=== PATIENT | female | born 1995 | race Caucasian/White ===

== ENCOUNTER 2024-10-06 23:44 | Emergency (ER) | payer OTHER ==
[~2024-10-06] VITALS: Ht 167.6 cm; Wt 94.8 kg
[2024-10-07] MEDS ORDERED: LACTATED RINGER'S 1,000 ML IV ONE (00:15)
[2024-10-07] MEDS ORDERED: ALBUTEROL/IPRATROPIUM 3 ML NEB INH ONE (00:15)
--- OUTSIDE RECORDS SUMMARY | 2024-10-07 00:15 | XMS ---
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 Terry [facility] (12 MO.) [facility] TOTAL 6 NOTE: Visits indicate total known visits. ED/UCC VISIT TRACKING (12 MO.) 10/06/2024 23:[address] [facility] [place] TYPE: Emergency COMPLAINT: - TROUBLE BREATHING/6 WEEKS 10/01/2024 17:51 [facility] [place] [facility] DIAGNOSES: - Acute cystitis without hematuria - Influenza due to other identified influenza virus with other respiratory manifestations - Other specified related conditions, unspecified trimester - Pelvic and perineal pain - Vomiting of , unspecified - Abdominal Pain - Cough - Nausea/Vomiting/Abdominal Pain - Vomiting 06/10/2024 17:53 [facility] [place] TYPE: Emergency DIAGNOSES: - Unspecified sprain of right hip, initial encounter - FALL - Hip Pain - Leg Pain 04/19/2024 07:24 [facility] [place] TYPE: Emergency DIAGNOSES: - Calculus of bile duct without cholangitis or cholecystitis without obstruction - Abdominal Pain - Abdominal pain, vomiting - Back Pain 02/27/2024 12:37 [facility] [place] TYPE: Emergency DIAGNOSES: - Bacteriuria - Unspecified abdominal pain - Abdominal Pain - rlq pain, vomiting 12/11/2023 05:29 [facility] [place] [facility] DIAGNOSES: - Acute suppurative otitis media without spontaneous rupture of ear drum, right ear - EARACHE INPATIENT VISIT TRACKING (12 MO.) No inpatient visits to display in this time frame [email or web address]
[2024-10-07 00:17] LABS: BASOPHILS 0.5 % (0-2); EOSINOPHILS 1.3 % (0-6); HEMATOCRIT 38.4 % (35.0-50.0); HEMOGLOBIN 13.3 g/dL (12.0-18.0); LYMPHOCYTES 42.7 % (24-44); MCH 31.2 (27-36); MCHC 34.6 g/dl (30-36); MCV 90.3 fl (81-99); MONOCYTES 10.3 % (0-12); NEUTROPHILS 45.2 % (39-80); PLATELET COUNT 212 K/uL (140-440); RBC 4.25 M/ul (4.3-5.7); RDW 12.6 (10.5-15.0)
[2024-10-07] MEDS ORDERED: DEXAMETHASONE SOD PHOS 10 MG/ML VIAL ONE (00:23)
[2024-10-07] MEDS ORDERED: DEXAMETHASONE SOD PHOS 10 MG/ML VIAL IV ONE (00:30)
[2024-10-07 00:34] LABS: ALBUMIN 3.9 g/dL (3.4-5.0); ALBUMIN/GLOBULIN RATIO 1.15 (1.1-2.4); ANION GAP 13.3 (7-21); BILIRUBIN, TOTAL 0.4 ng/dL (0.2-1.0); BUN/CREATININE RATIO 11.26 (6.0-28.6); CALCIUM 9.4 mg/dL (8.5-10.1); CREATININE, SERUM 0.71 mg/dL (0.55-1.02); MAGNESIUM 1.8 mg/dL (1.8-2.4); POTASSIUM 3.3 mmol/L (3.5-5.1); PROTEIN, TOTAL 7.3 g/dL (6.4-8.2)
[2024-10-07 00:37] LABS: LACTIC ACID, BLOOD 1.2 mmol/L (0.4-2.0)
[2024-10-07] MEDS ORDERED: ALBUTEROL SULFATE 8 GM HOME.PACK INH ONE (00:45)
[2024-10-07] MEDS ORDERED: INHALER, ASSIST DEVICES 1 EACH SPACER MISC ONE (00:45)
[2024-10-07] MEDS ORDERED: METHYLPREDNISOLO4 M1 PO (00:46)
[2024-10-07] MEDS ORDERED: FAMOTIDINE 20 MG/ 2 ML VIAL IV ONE (01:00)
[2024-10-07] MEDS ORDERED: ondansetron HCL 4 MG/2 ML VIAL IV ONE (01:00)
[2024-10-07] MEDS ORDERED: LIDOCAINE & ANTACID 35 ML BTL PO ONE (01:15)
[2024-10-07] MEDS ORDERED: OMEPRAZOLE20 MG PO (01:31)
[2024-10-07] MEDS ORDERED: CARAFATE1 GM/10 ML PO (01:31)
[2024-10-07 01:45] VITALS: BP 130/69
--- NOTE | 2024-10-07 21:42 | EKG ---
[facility] [address] [facility] [place] [facility] [place] [address] Signed Sinus tachycardia Otherwise normal ECG No previous ECGs available Confirmed by Mili Kirkpatrick MD () on 10/07/2024 9:42:33 PM Electronically Signed By: MILI KIRKPATRICK MD 10/07/242141 PATIENT NAME: QUENTIN CAMARILLO Electrocardiogram DATE OF : [birth year] PHYSICIAN: MILI KIRKPATRICK MD REPORT #: [id number] REPORT IS CONFIDENTIAL AND NOT TO BE RELEASED WITHOUT AUTHORIZATION
== END 2024-10-07 01:45 | disposition home or self-care (01) ==
LOC: ED 23:44
PROVIDERS: Internal Medicine
DX: J20.8 Acute bronchitis due to other specified organisms (principal); K21.9 Gastro-esophageal reflux disease without esophagitis; J10.1 Influenza due to other identified influenza virus with other respiratory manifestations
CPT/HCPCS: 36415; 71045; 80053; 83605; 83735; 84484; 85025; 93005; 93010; 94640; 94664; 96374; 96375; 99285-25; J1100; J2405; J7121

== ENCOUNTER 2025-05-24 06:00 | Inpatient (IN) | payer OTHER ==
[~2025-05-24] VITALS: Ht 172.7 cm; Wt 107.5 kg
[~2025-05-24 06:00] MED LIST: CALCIUM CARBONATE 500 MG CHEW PO PRN; CARAFATE1 GM/10 ML PO; LACTATED RINGER'S 1,000 ML IV PRN; LACTATED RINGER'S 1,000 ML IV SCH; LIDOCAINE HCL 1% 30 ML SDV INJ PRN; MAGNESIUM HYDROXIDE/AL HYDROX 30 ML CUP PO PRN; METHYLPREDNISOLO4 M1 PO; OMEPRAZOLE20 MG PO; OXYTOCIN/0.9 % SODIUM CHLORIDE 30 UNITS/500 ML BAG IV SCH; TERBUTALINE SULFATE 1 MG/ML AMP SUB-Q PRN
[2025-05-24] MEDS ORDERED: OXYTOCIN/0.9 % SODIUM CHLORIDE 500 ML IV SCH (06:15)
[2025-05-24 06:59] VITALS: BP 115/60
[2025-05-24 07:07] LABS: MCH 31.0 PG (25.6-32.2); MCHC 32.9 g/dL (32.2-35.5); MCV 94.1 fL (79.4-94.8); RBC 3.55 M/uL (3.93-5.22)
[2025-05-24 07:14] LABS: AMPHETAMINES, URINE NEGATIVE (NEGATIVE); BARBITURATES, URINE NEGATIVE (NEGATIVE); BENZODIAZEPINE, URINE NEGATIVE (NEGATIVE); CANNABINOID, URINE NEGATIVE (NEGATIVE); COCAINE, URINE NEGATIVE (NEGATIVE); ECSTASY, URINE NEGATIVE (NEGATIVE); FENTANYL, URINE NEGATIVE (NEGATIVE); METHADONE, URINE NEGATIVE (NEGATIVE); OPIATES, URINE NEGATIVE (NEGATIVE); OXYCODONE, URINE NEGATIVE (NEGATIVE); PHENCYCLIDINE, URINE NEGATIVE (NEGATIVE)
[2025-05-24 07:29] LABS: ABO A; ANTIBODY SCREEN NEGATIVE; RH POSITIVE
[2025-05-24 07:58] LABS: PROTEIN, RANDOM URINE 26.0 mg/dL (NOT ESTABLISHED)
[2025-05-24 08:04] LABS: ALT (SGPT) 6.0 U/L (14-59); AST (SGOT) 17.0 U/L (15-37); GLOMERULAR FILTRATION RATE,EST 126.0 mL/min (>60); PROTEIN, TOTAL 6.8 g/dL (6.4-8.2); UREA NITROGEN 9.0 mg/dL (7-18)
[2025-05-24] MEDS ORDERED: FAMOTIDINE 20 MG/ 2 ML VIAL IV PRN (17:15)
--- NOTE | 2025-05-24 17:15 | PR ---
[facility] [address] [place], [place] [address] Signed Progress Notes IP Datetime Report Generated by CPEric: 05/24/2025 17:15 PROGRESS NOTES: [id number] Impression: Reassuring Heart Rate Procedures: Sterile Vag Exam Plan: Continue Present Management Informed Consent Obtain: Induction of Labor VITAL SIGNS: [id number] Vital Signs: Reviewed; Within Normal Limits EXAM: [id number] Dilatation: 0.5 Effacement: 60 Effacement: 50 Effacement: 50 Effacement: thick Effacement: thick Effacement: thick Station: -3 Station: -4 Station: -4 Station: -3 Station: -3 Station: -3 Contractions: Irregular, mild MEMBRANES: [id number] ROM Note: No leaking noted at this time. Panties moist without pad on. Nitrazine negative on panties. Comments: Pt seen and examined. Doing well. Contractions regular and somewhat painful. Cx remains unfavorable; fingertip thick -3 posterior soft. Reviewed plan of care. Will reevaluate cx at _ 9pm. Consider Cook cath if unchanged and isela vs cytotec if not isela. If favorable, would consider AROM vs expectant management if in active labor. All questions answered. FETUS A: [id number] FHR Baseline: 130 Variability: Moderate 6-25bpm Accelerations: 15X15 Decelerations: None FHR Category: Category I Presentation: Vertex *Electronically Signed* 05/24/25 3497 LUISA VITALE) DO PATIENT NAME: QUENTIN CAMARILLO PROGRESS NOTE DATE OF : [birth year] PHYSICIAN: LUISA VITALE (JD) DO RPT #: [id number] REPORT IS CONFIDENTIAL AND NOT TO BE RELEASED WITHOUT AUTHORIZATION [address] [place] [address] Signed Comments on Fetus A: Reassuring FETUS B: [id number] Signing Physician: Luisa Vitale DO Copies: ~ *Electronically Signed* 05/24/25 1715 LUISA VITALE) DO PATIENT NAME: QUENTIN CAMARILLO PROGRESS NOTE DATE OF : [birth year] PHYSICIAN: LUISA VITALE (JD) DO RPT #: [id number] REPORT IS CONFIDENTIAL AND NOT TO BE RELEASED WITHOUT AUTHORIZATION
[2025-05-24] MEDS ORDERED: ACETAMINOPHEN 500 MG TAB PO PRN (21:30)
[2025-05-25 02:43] LABS: AMNISURE ROM TEST POSITIVE
[2025-05-25] MEDS ORDERED: LIDOCAINE HCL 2% 5 ML SDV ONE (03:19)
[2025-05-25] MEDS ORDERED: ROPIVACAINE 0.2% 200 ML BAG ONE (03:19)
[2025-05-25] MEDS ORDERED: ePHEDrine sulfate 5 MG/ML SYRINGE IV PRN (04:15)
[2025-05-25] MEDS ORDERED: LACTATED RINGER'S 2,000 ML IV ONE (04:15)
[2025-05-25] MEDS ORDERED: LACTATED RINGER'S 500 ML IV PRN (04:15)
[2025-05-25] MEDS ORDERED: ROPIVACAINE 0.2% 200 ML BAG EPIDURAL SCH (04:15)
--- NOTE | 2025-05-25 08:10 | PR ---
[facility] [address] [facility] [place], [place] [address] Signed Progress Notes IP Datetime Report Generated by CPN: 05/25/2025 08:10 Impression: Normal Progression of Labor Procedures: Sterile Vag Exam Plan: Continue Present Management; Anesthesia Consult Informed Consent Obtain: Vaginal Delivery Dilatation: 4.0 Effacement: 60 Effacement: 40 Effacement: 40 Effacement: 40 Effacement: 40 Station: -3 Station: -3 Station: -3 Station: -3 Station: -3 Contractions: q 3 min Comments: Pt seen and examined. SROM _ 2am w/ increased contractions and received epidural. Slept well but now more uncomfortable and requesting bolus. Reviewed cervical change, adequate pelvis, and anticipated . Consider IUPC w/ possible augmentation vs expectant labor management once more comfortable. Variability: Moderate 6-25bpm Decelerations: None FHR Category: Category I Signing Physician: Luisa Vitale DO Copies: ~ *Electronically Signed* 05/25/25 0800 LUISA VITALE (TORREY) DO PATIENT NAME: QUENTIN CAMARILLO PROGRESS NOTE DATE OF : [birth year] PHYSICIAN: LUISA VITALE) DO RPT #: [id number] REPORT IS CONFIDENTIAL AND NOT TO BE RELEASED WITHOUT AUTHORIZATION
[2025-05-25] MEDS ORDERED: Ropivacaine HCl 0.5% 30 ML VIAL ONE (08:23)
--- NOTE | 2025-05-25 11:14 | PR ---
[facility] [address] [facility] [place] [facility] [place], [place] [address] Signed Progress Notes IP Datetime Report Generated by CPN: 05/25/2025 11:14 Impression: Normal Progression of Labor; Reassuring Heart Rate Procedures: Intrauterine Pressure Catheter; Sterile Vag Exam Plan: Augmentation Informed Consent Obtain: Vaginal Delivery; Risks, Benefits and Alternatives Discussed Dilatation: 5.0 Effacement: 60 Station: -3 Contractions: q 4-5 min Comments: Pt seen and examined. Doing well. Comfortable w/ epidural. Now 5cm but station remains quite high. IUPC placed w/out difficulty. Considered FSE but vertex not well enough applied to safely place and attempt was ceased. Will start pitocin augmentation. Reviewed prior deliveries / estimated weight and adequate pelvis. All questions answered. Variability: Moderate 6-25bpm Decelerations: None FHR Category: Category I Signing Physician: Luisa Vitale DO Copies: ~ *Electronically Signed* 05/25/25 1114 LUISA VITALE (TORREY) DO PATIENT NAME: QUENTIN CAMARILLO PROGRESS NOTE DATE OF : [birth year] PHYSICIAN: LUISA VITALE (TORREY) DO RPT #: [id number] REPORT IS CONFIDENTIAL AND NOT TO BE RELEASED WITHOUT AUTHORIZATION
[2025-05-25] MEDS ORDERED: OXYTOCIN/0.9 % SODIUM CHLORIDE 500 ML IV SCH ×2 (11:15→20:30)
--- NOTE | 2025-05-25 15:38 | PR ---
[facility] [address] [facility] [place], [place] [address] Signed Progress Notes IP Datetime Report Generated by CPN: 05/25/2025 15:38 Impression: Normal Progression of Labor; Reassuring Heart Rate Procedures: Sterile Vag Exam Plan: Continue Present Management Informed Consent Obtain: Vaginal Delivery Dilatation: 6.0 Contractions: q 3-4 minutes Comments: Pt seen and examined. Doing well. Comfortable w/ epidural. Continued slow dilation but station remains high. Continue pitocin per protocol. Variability: Moderate 6-25bpm Decelerations: Variable FHR Category: Category II Signing Physician: Luisa Vitael DO Copies: ~ *Electronically Signed* 05/25/25 1538 LUISA VITALE) DO PATIENT NAME: QUENTIN CAMARILLO PROGRESS NOTE DATE OF : [birth year] PHYSICIAN: LUISA VITALE DO (JD) RPT #: [id number] REPORT IS CONFIDENTIAL AND NOT TO BE RELEASED WITHOUT AUTHORIZATION
[2025-05-25] MEDS ORDERED: SODIUM CHLORIDE 0.9% 1,000 ML XX SCH (16:45)
--- NOTE | 2025-05-25 17:40 | PR ---
[facility] [address] [facility] [place], [place] [address] Signed Progress Notes IP Datetime Report Generated by CPN: 05/25/2025 17:40 Impression: Normal Progression of Labor; Reassuring Heart Rate Procedures: Sterile Vag Exam Plan: Continue Present Management; Anesthesia Consult Informed Consent Obtain: Vaginal Delivery Dilatation: 8.0 Contractions: q 3-4 min ROM Note: amnioinfusion at 100 ml/hr ROM Note: Amnioinfusion rate down to 100ml /hr ROM Note: Amnioinfusion started. 300ml/20min Comments: Pt seen and examined. Uncomfortable w/ contractions and requesting epidural rebolus. Anesthesia currently unavailable in a case. Pt now /-3. Pitocin was discontinued per protocol and amnioinfusion started. FHT reassuring and will continue monitoring. Variability: Moderate 6-25bpm Decelerations: Variable FHR Category: Category II Signing Physician: Luisa Vitale DO Copies: ~ *Electronically Signed* 05/25/25 4962 LUISA VITALE (TORREY) DO PATIENT NAME: QUENTIN CAMARILLO PROGRESS NOTE DATE OF : [birth year] PHYSICIAN: LUISA VITALE (TORREY) DO RPT #: [id number] REPORT IS CONFIDENTIAL AND NOT TO BE RELEASED WITHOUT AUTHORIZATION
[2025-05-25] MEDS ORDERED: fentaNYL citrate 100 MCG/2 ML VIAL ONE (18:05)
--- NOTE | 2025-05-25 19:36 | PR ---
[facility] [address] [facility] [place], [place] [address] Signed Progress Notes IP Datetime Report Generated by CPN: 05/25/2025 19:36 Impression: Normal Progression of Labor; Reassuring Heart Rate Procedures: Sterile Vag Exam Plan: Continue Present Management; Anticipate Vaginal Delivery Informed Consent Obtain: Vaginal Delivery Dilatation: 9.0 Effacement: 100 Station: -1 Contractions: q 2-4 min ROM Note: 401.5ml infused and none out. Amnio ifusion Dc'd Comments: Pt seen and examined. Doing well. Much more comfortable. Intermittent variable decelerations. Pt now 9cm/100/-1. Anticipate soon. Will allow to labor down Variability: Moderate 6-25bpm Decelerations: Variable FHR Category: Category II Signing Physician: Luisa Vitale DO Copies: ~ *Electronically Signed* 05/25/251935 LUISA VITALE) DO PATIENT NAME: QUENTIN CAMARILLO PROGRESS NOTE DATE OF : [birth year] PHYSICIAN: LUISA VITALE (JD) DO RPT #: [id number] REPORT IS CONFIDENTIAL AND NOT TO BE RELEASED WITHOUT AUTHORIZATION
[2025-05-25] MEDS ORDERED: MAGNESIUM HYDROXIDE/AL HYDROX 30 ML CUP PO PRN (20:30)
[2025-05-25] MEDS ORDERED: CALCIUM CARBONATE 500 MG CHEW PO PRN (20:30)
[2025-05-25] MEDS ORDERED: IBUPROFEN 600 MG TAB PO PRN (20:30)
[2025-05-25] MEDS ORDERED: WITCH HAZEL/GLYCERIN 1 EA PAD TOP PRN (20:30)
[2025-05-25] MEDS ORDERED: OXYCODONE/APAP 5/325 TAB PO PRN (20:30)
[2025-05-25] MEDS ORDERED: BENZOCAINE 60 ML AEROSOL TOP PRN (20:30)
[2025-05-25] MEDS ORDERED: HYDROCORTISONE ACETATE 25 MG SUPP PR PRN (20:30)
[2025-05-25] MEDS ORDERED: MAGNESIUM HYDROXIDE 30 ML UDC PO PRN (20:30)
[2025-05-25] MEDS ORDERED: ACETAMINOPHEN 325 MG TAB PO PRN (20:30)
[2025-05-25] MEDS ORDERED: HYDROCODONE/ACETA 5/325 TAB PO PRN (20:30)
[2025-05-25] MEDS ORDERED: SENNOSIDES/DOCUSATE 1 EA TAB PO SCH (21:00)
[2025-05-26 05:30] LABS: MCH 31.5 PG (25.6-32.2); MCHC 33.7 g/dL (32.2-35.5); MCV 93.8 fL (79.4-94.8); RBC 3.36 M/uL (3.93-5.22)
--- NOTE | 2025-05-26 14:37 | PR ---
[facility] [address] [facility] [place], [place] [address] Signed PP Progress Notes Datetime Report Generated by CPN: 05/26/2025 14:37 SUBJECTIVE: [id number] Pain: Within Normal Limits Nausea/Vomiting: Denies Flatus: Yes Bowel Movement: No Vital Signs: [id number] Vital Signs: Reviewed; Within Normal Limits Cardiovascular: Normal Respiratory: Normal Abdomen/Uterus: Normal Lochia: Normal Vulva/Perineum: Not Done Breasts: Not Done CVA Tenderness: Normal Extremities: Normal Incision: Not Applicable Progress: Normal Exam Comments: Fundus firm U-2 nontender IMPRESSION/PLAN/PROCEDURES: [id number] Impression: Normal Progression Plan: Continue Present Management Progress Notes: Pt seen and examined. Doing well. No concerns. Ambulating, voiding, and tolerating full diet. Pain and lochia minimal. No questions or concerns. Anticipate d/c home tomorrow. Signing Physician: Luisa Vitale DO Copies: ~ *Electronically Signed* 05/26/25 1239 LUISA VITALE (TORREY) DO PATIENT NAME: QUENTIN CAMARILLO PROGRESS NOTE DATE OF : [birth year] PHYSICIAN: LUISA VITALE) DO RPT #: [id number] REPORT IS CONFIDENTIAL AND NOT TO BE RELEASED WITHOUT AUTHORIZATION
--- NOTE | 2025-05-27 07:58 | PR ---
[facility] [address] [facility] [place], [place] [address] Signed PP Progress Notes Datetime Report Generated by CPN: 05/27/2025 07:58 Pain: Within Normal Limits Nausea/Vomiting: Denies Flatus: Yes Bowel Movement: No Vital Signs: Reviewed; Within Normal Limits Cardiovascular: Normal Respiratory: Normal Abdomen/Uterus: Normal Lochia: Normal Vulva/Perineum: Not Done Breasts: Not Done CVA Tenderness: Normal Extremities: Normal Incision: Not Applicable Progress: Normal Exam Comments: Fundus firm U-2 nontender Impression: Normal Progression Plan: Discharge Progress Notes: Pt seen and examined. Doing well. Ambulating, voiding, and tolerating full diet. Pain and lochia minimal. . No fevers / chills. No concerns. Desires d/c home today. Reviewed d/c instructions and medications. Planning Mirena vs micronor for contraception. All questions answered. Signing Physician: Luisa Vitale DO Copies: ~ *Electronically Signed* 05/27/25 0758 LUISA VITALE (TORREY) DO PATIENT NAME: QUENTIN CAMARILLO PROGRESS NOTE DATE OF : [birth year] PHYSICIAN: LUISA VITALE) DO RPT #: [id number] REPORT IS CONFIDENTIAL AND NOT TO BE RELEASED WITHOUT AUTHORIZATION
[2025-05-27] MEDS ORDERED: MEASLES,MUMPS&RUBELLA VACCINE 1 VIAL VIAL SUB-Q ONE (09:45)
== END 2025-05-27 10:10 | disposition home or self-care (01) | DRG 806 ==
LOC: FBC 06:00
PROVIDERS: Obstetrics & Gynecology; ADMIT Obstetrics & Gynecology; ATTEND Obstetrics & Gynecology
PROC: 3E033VJ Introduction of Other Hormone into Peripheral Vein, Percutaneous Approach (ICD-10-PCS; principal; 2025-05-24)
PROC: 10E0XZZ Delivery of Products of Conception, External Approach (ICD-10-PCS; 2025-05-24)
PROC: 3E0R3BZ Introduction of Anesthetic Agent into Spinal Canal, Percutaneous Approach (ICD-10-PCS; 2025-05-24)
PROC: 00HU33Z Insertion of Infusion Device into Spinal Canal, Percutaneous Approach (ICD-10-PCS; 2025-05-24)
DX: O69.81X0 Labor and delivery complicated by cord around neck, without compression, not applicable or unspecified (principal); O99.354 Diseases of the nervous system complicating childbirth; Z37.0 Single live birth; O75.5 Delayed delivery after artificial rupture of membranes; G43.909 Migraine, unspecified, not intractable, without status migrainosus; Z3A.39 39 weeks gestation of pregnancy
CPT/HCPCS: 36415; 80053; 80307; 82570; 84112; 84156; 84550; 85027; 86850; 86900; 86901; A9270; J2003; J2405; J2795; J3010; J7030; J7121

== ENCOUNTER 2025-09-03 11:13 | Day surgery (SDC) | payer OTHER ==
[~2025-09-03] VITALS: Ht 172.7 cm; Wt 104.6 kg
[~2025-09-03 11:13] MED LIST changes: -CALCIUM CARBONATE 500 MG CHEW PO PRN; +CEPHALEXIN500 MG PO; +IBLOOD GLUCOSE TEST STRIP 1 EA TEST VI PRN; -LACTATED RINGER'S 1,000 ML IV PRN; -LIDOCAINE HCL 1% 30 ML SDV INJ PRN; +LIDOCAINE HCL 1% 5 ML SDV INJ ONE; -MAGNESIUM HYDROXIDE/AL HYDROX 30 ML CUP PO PRN; -OXYTOCIN/0.9 % SODIUM CHLORIDE 30 UNITS/500 ML BAG IV SCH; -TERBUTALINE SULFATE 1 MG/ML AMP SUB-Q PRN
[2025-09-03 11:47] VITALS: BP 122/70
--- NOTE | 2025-09-03 12:15 | NUR ---
IN CAR WITH OTHER CHILDREN.
[2025-09-03] MEDS ORDERED: fentaNYL citrate 100 MCG/2 ML VIAL ONE (12:32)
[2025-09-03] MEDS ORDERED: LIDOCAINE HCL 2% 5 ML SDV ONE (12:46)
[2025-09-03] MEDS ORDERED: DEXAMETHASONE SOD PHOS 4 MG/ML VIAL ONE (12:46)
[2025-09-03 13:35] VITALS: BP 130/72
--- NOTE | 2025-09-03 13:38 | NUR ---
CALL LIGHT GIVEN. DENIES ANY NEEDS.
--- NOTE | 2025-09-03 13:52 | NUR ---
CALL LIGHT ANSWERED. PT REPORTING HORAN. DR. MARTINEZ CALLED AND VERBAL ORDER RECEIVED FOR IBU 800 MG PO ONCE. ORDER ENTERED INTO [employer].
[2025-09-03] MEDS ORDERED: IBUPROFEN 800 MG TAB PO ONE (14:00)
--- NOTE | 2025-09-03 14:00 | NUR ---
09/03/25 1400 Sheets,Kayleigh 1300 PT ARRIVED TO PACU ORAL AIRWAY AND 6L VIA MASK. RESP EVEN AND UNLABORED WITRH CHIN LIFT USED OFF AND ON TO MAINTAIN AIRWAY. 1309 PT WAKES AND ORAL AIRWAY REMOVED. PT REORIENTED TO PACU AND DENIES CONCERNS. PLAN OF CARE DISCUSSED. 1320 MD AT BEDSIDE TALKING TO PT. 1325 PT RETURNED TO DS AND SHE UPDATED HER . REPORT GIVEN AND ALL QUESTIONS ANSWERED. VSS.
[2025-09-03 14:25] VITALS: BP 124/86
--- NOTE | 2025-09-03 14:37 | NUR ---
PT READY TO GO HOME VOIDS 400MLS URINE SPOT OF RED IN URINE.
[2025-09-03] MEDS ORDERED: SEVOFLURANE 250 ML BTL INH ONE (16:11)
== END 2025-09-03 14:40 | disposition home or self-care (01) ==
LOC: OPS 11:13 → DS 12:00 → OPS 12:00
PROVIDERS: ATTEND Obstetrics & Gynecology
PROC: 0UCC8ZZ Extirpation of Matter from Cervix, Via Natural or Artificial Opening Endoscopic (ICD-10-PCS; principal; 2025-09-03 12:00)
DX: T83.32XA Displacement of intrauterine contraceptive device, initial encounter (principal); F90.9 Attention-deficit hyperactivity disorder, unspecified type; E28.2 Polycystic ovarian syndrome; E66.9 Obesity, unspecified; Z68.35 Body mass index [BMI] 35.0-35.9, adult; Z91.018 Allergy to other foods; Z91.030 Bee allergy status
CPT/HCPCS: 00952; A9270; J1100; J2003; J2405; J2704; J3010